=== PATIENT | female | born 1960 | race Caucasian/White ===

== ENCOUNTER 2021-02-23 20:21 | Emergency (ER) | payer OTHER ==
[~2021-02-23 20:21] MED LIST: DIAZEPAM 2MG TAB2 MG PO; DIAZEPAM2 MG PO; FLUOXETINE HCL20 MG PO; IMITREX25 MG PO; IMITREX50 MG PO; LEVSIN0.125 MG PO; MELATONIN3 MG PO; MELATONIN5 M2 PO; NAPROXEN500 MG PO; PHENERGAN25 M1 PO; PROMETHAZINE HC25 M1 PO; REMERON15 MG PO; SINGULAIR10 MG PO; SINGULAIR4 M1 PO; TOPAMAX50 MG PO; TOPIRAMATE100 MG PO
[2021-02-23] MEDS ORDERED: KETOROLAC TROME10 MG PO (23:09)
== END 2021-02-23 23:26 | disposition home or self-care (01) ==
LOC: FER 20:21
DX: G43.909 Migraine, unspecified, not intractable, without status migrainosus (principal); Z88.5 Allergy status to narcotic agent; Z88.1 Allergy status to other antibiotic agents
CPT/HCPCS: J0780; J1200; J1885; J7030

== ENCOUNTER 2021-10-12 19:21 | Emergency (ER) | payer OTHER ==
[~2021-10-12 19:21] MED LIST changes: +KETOROLAC TROME10 MG PO
[2021-10-12 19:51] LABS: BASOPHIL 0.3 % (0-2); EOSINOPHIL 0.8 % (0-5); HCT 36.4 % (37.0-47.0); HGB 11.8 g/dl (12.5-16.0); LYMPHOCYTE 15.9 % (15-48); MCHC 32.4 g/dL (32.0-36.0); MCV 92.6 fL (78.0-100.0); MONOCYTE 6.6 % (0-12); MPV 10.4 fL (6.0-9.5); NEUTROPHIL 76.1 % (41-80); NRBC 0; PLT 179 K/uL (150-400); RBC 3.93 M/uL (4.20-5.40); RDW 11.8 % (11.5-14.0)
[2021-10-12 20:12] LABS: ALBUMIN 3.2 g/dL (3.4-5.0); BILIRUBIN - TOTAL 0.4 mg/dL (0.2-1.0); BUN/CREAT RATIO (CALC) 26.2 RATIO; CREATININE 0.61 mg/dL (0.51-0.95); GLOBULIN (CALCULATION) 3.1 g/dL; POTASSIUM 3.6 mmol/L (3.5-5.1); TOTAL PROTEIN 6.3 g/dL (6.4-8.2)
[2021-10-12 20:28] LABS: CORONAVIRUS 2019 SARS-COV-2 NEGATIVE (NEGATIVE); INFLUENZA A NAA NEGATIVE (NEGATIVE)
[2021-10-12] MEDS ORDERED: VENTOLIN HFA IN18 GM INH (22:15)
[2021-10-12] MEDS ORDERED: MEDROL 4MG DOSEP4 MG PO (22:15)
== END 2021-10-12 23:02 | disposition home or self-care (01) ==
LOC: FER 19:21
PROVIDERS: Internal Medicine
DX: B34.9 Viral infection, unspecified (principal); J44.9 Chronic obstructive pulmonary disease, unspecified; Z20.822 Contact with and (suspected) exposure to COVID-19; Z87.891 Personal history of nicotine dependence; Z88.1 Allergy status to other antibiotic agents; Z88.5 Allergy status to narcotic agent; Z79.899 Other long term (current) drug therapy
CPT/HCPCS: 36415; 71250; 80053; 83690; 84145; 84484; 85025; 93005; 94640; 94664; J1100; U0002